=== PATIENT | male | born 1985 | race Caucasian/White ===

== ENCOUNTER → 2021-08-19 | Outpatient (REF) | payer BC | LOC: M LAB REF 12:20 | PROVIDERS: ATTEND Physician Assistant Medical | DX: R50.9 Fever, unspecified (principal); W57.XXXA Bitten or stung by nonvenomous insect and other nonvenomous arthropods, initial encounter ==

== ENCOUNTER → 2024-01-20 | Outpatient (CLI) | payer BC | LOC: M RAD 18:53 | PROVIDERS: ATTEND Physician Assistant | DX: M79.661 Pain in right lower leg (principal) ==